=== PATIENT | female | born 1950 | race Caucasian/White ===

== ENCOUNTER → 2016-11-30 | Outpatient (CLI) | payer BC ==
[2016-11-30 08:25] LABS: ALANINE AMINOTRANSFERASE 41 U/L (9-52); ALBUMIN 3.6 g/dL (3.5-5.0); ALKALINE PHOSPHATASE 76 U/L (38-126); ANION GAP 10 (5-19); ASPARTATE AMINO TRANSFERASE 27 U/L (14-36); BILIRUBIN,DIRECT 0.2 mg/dL (0.0-0.4); BILIRUBIN,TOTAL 0.5 mg/dL (0.2-1.3); BLOOD UREA NITROGEN 14 mg/dL (7-20); CALCIUM 9.3 mg/dL (8.4-10.2); CARBON DIOXIDE 29 mmol/L (22-30); CHLORIDE 105 mmol/L (98-107); CHOLESTEROL 188.23 mg/dL (0-200); CREATININE RESULT 0.71 mg/dL (0.52-1.25); Direct HDL 69 mg/dL (>40); GLUCOSE 92 mg/dL (75-110); POTASSIUM 4.2 mmol/L (3.6-5.0); SODIUM 143.8 mmol/L (137-145); TOTAL PROTEIN 6.6 g/dL (6.3-8.2); TRIGLYCERIDES 116 mg/dL (<150)
[2016-11-30 08:36] LABS: DIRECT LDL 92 mg/dL (<100)
[2016-11-30 08:54] LABS: THYROID STIMULATING HORMONE 1.76 uIU/mL (0.47-4.68)
== END ==
LOC: LAB 07:33
PROVIDERS: ATTEND Internal Medicine
DX: E78.2 Mixed hyperlipidemia (principal); E03.8 Other specified hypothyroidism; I10 Essential (primary) hypertension
CPT/HCPCS: 36415; 80053; 80061; 84439; 84443

== ENCOUNTER 2018-05-08 14:25 | Observation (INO) | payer MEDICARE, OTHER ==
[2018-05-08] MEDS ORDERED: ASPIRIN 81 MG TABLET, CHEWABLE PO ONE (15:00)
--- NOTE | 2018-05-08 15:03 | ER Document Report ---
ED Medical Screen (RME) - General Chief Complaint: Chest Pain Stated Complaint: CHEST PAIN Time Seen by Provider: 05/08/18 14:54 TRAVEL OUTSIDE OF THE [place] IN LAST 30 DAYS: No - HPI Patient complains to provider of: Chest pain Onset: Other - This is a 67-year-old female with history of hypertension and hyperlipidemia that presents for evaluation of chest tightness as well as diaphoresis and nausea which developed while she was vacuuming at her denominational, upon stopping the pain resolved over approximately 3-4 minutes. She took 2 baby aspirins at that time and then presented for further evaluation. Currently she has no chest pain, she denies any recent illnesses, fevers, chills , shortness of breath, lightheadedness, abdominal pain constipation or dysuria. She is never had anything like this in the past. Does not believe she is ever had a stress test or catheterization in the past. - Related Data Allergies/Adverse Reactions: iodine Allergy (Verified 05/08/18 14:29) isometheptene Allergy (Verified 05/08/18 14:29) nitrofurantoin Allergy (Verified 05/08/18 14:29) phenazopyridine Allergy (Verified 05/08/18 14:29) propoxyphene Allergy (Verified 05/08/18 14:29) Quinolones Allergy (Verified 05/08/18 14:29) Sulfa (Sulfonamide Antibiotics) Allergy (Verified 05/08/18 14:29) trimethoprim Allergy (Verified 05/08/18 14:29) Past Medical History - General Information source: Patient - Social History Chew tobacco use (# tins/day): No Frequency of alcohol use: None Drug Abuse: None Renal/ Medical History: Denies: Hx Peritoneal Dialysis Physical Exam - Vital signs Vitals: Temp Pulse Resp BP Pulse Ox 97.6 F 58 L 16 186/94 H 97 05/08/18 14:37 05/08/18 14:37 05/08/18 14:37 05/08/18 14:37 05/08/18 14:37 Course - Re-evaluation Re-evalutation: 05/08/18 15:02 This 67-year-old female who had exertional chest pain with diaphoresis and nausea. We will initiate workup for cardiac etiology. We will defer further workup and disposition determination with second provider. I performed a rapid medical screening examination on this patient will defer further disposition determination workup and labs to next provider. - Vital Signs Vital signs: Temp Pulse Resp BP Pulse Ox 97.6 F 58 L 16 186/94 H 97 05/08/18 14:37 05/08/18 14:37 05/08/18 14:37 05/08/18 14:37 05/08/18 14:37 Doctor's Discharge - Discharge Referrals: INDY LEYVA MD [Primary Care Provider] - Follow up as needed
[2018-05-08 15:44] LABS: ABSOLUTE BASOPHILS # (AUTO) 0.1 10^3/uL (0.0-0.2); ABSOLUTE LYMPHOCYTES (AUTO) 0.9 10^3/uL (0.5-4.7); ABSOLUTE MONOCYTES (AUTO) 0.7 10^3/uL (0.1-1.4); ABSOLUTE NEUT (AUTO) 9.5 10^3/uL (1.7-8.2); BASOPHILS % (AUTO) 0.5 % (0-2); EOSINOPHILS % (AUTO) 0.2 % (0-6); HEMATOCRIT 43.5 % (36.0-47.0); HEMOGLOBIN 14.7 g/dL (12.0-15.5); LYMPHOCYTES % (AUTO) 8.2 % (13-45); MEAN CORPUSCULAR HEMOGLOBIN 32.7 pg (27.0-33.4); MEAN CORPUSCULAR HGB CONC 33.9 g/dL (32.0-36.0); MEAN CORPUSCULAR VOLUME 96 fl (80-97); MONOCYTES % (AUTO) 5.9 % (3-13); PLATELET COUNT 381 10^3/uL (150-450); RED BLOOD COUNT 4.51 10^6/uL (3.72-5.28); RED CELL DISTRIBUTION WIDTH 13.1 % (11.5-14.0); SEGMENTED NEUTROPHILS % (AUTO) 85.2 % (42-78); TOTAL CELLS COUNTED % (AUTO) 100 %; WHITE BLOOD COUNT 11.2 10^3/uL (4.0-10.5)
--- NOTE | 2018-05-08 15:47 | RADIOLOGY REPORT (SQ) ---
EXAM DESCRIPTION: CHEST SINGLE VIEW COMPLETED DATE/TIME: 05/08/2018 3:39 pm REASON FOR STUDY: chest pain COMPARISON: None. EXAM PARAMETERS: NUMBER OF VIEWS: One view. TECHNIQUE: Single frontal radiographic view of the chest acquired. RADIATION DOSE: NA LIMITATIONS: None. FINDINGS: LUNGS AND PLEURA: No opacities, masses or pneumothorax. No pleural effusion. MEDIASTINUM AND HILAR STRUCTURES: No masses. Contour normal. HEART AND VASCULAR STRUCTURES: Heart normal in size. Normal vasculature. BONES: No acute findings. HARDWARE: None in the chest. OTHER: No other significant finding. IMPRESSION: NO ACUTE RADIOGRAPHIC FINDING IN THE CHEST. TECHNICAL DOCUMENTATION: JOB ID: [id number] [employer]- All Rights Reserved Reading location - IP/workstation name: [email or web address]
--- NOTE | 2018-05-08 15:48 | ER Document Report ---
ED Cardiac - General Chief Complaint: Chest Pain Stated Complaint: CHEST PAIN Time Seen by Provider: 05/08/18 14:54 Notes: 67-year-old female patient emergency department chief complaint of chest pain and left-sided neck pain left arm pain radiating to the face. Patient states that she was vacuuming. Broke out in a sweat. Began to feel short of breath. Began having pain in the central portion of her chest radiating up into her left neck. Resolved. Went back to her vacuuming. Still having some achiness in the central portion of her chest subsided come here. While being evaluated by this physician during the physical exam she developed chest pain. Stat EKG was obtained. EKG was unchanged from prior EKG and no significant pathology seen. Nitro was ordered. Patient did receive aspirin. She also states that the left side of her face feels funny may be a little numb and tingly. Denies any eye pain. Denies any significant tearing of the left eye. TRAVEL OUTSIDE OF THE [place] IN LAST 30 DAYS: No - HPI Patient complains to provider of: Chest pain - Related Data Allergies/Adverse Reactions: iodine Allergy (Verified 05/08/18 15:01) isometheptene Allergy (Verified 05/08/18 15:01) nitrofurantoin Allergy (Verified 05/08/18 15:01) phenazopyridine Allergy (Verified 05/08/18 15:01) propoxyphene Allergy (Verified 05/08/18 15:01) Quinolones Allergy (Verified 05/08/18 15:01) Sulfa (Sulfonamide Antibiotics) Allergy (Verified 05/08/18 15:01) trimethoprim Allergy (Verified 05/08/18 15:01) Past Medical History - General Information source: Patient - Social History Smoking Status: Never Smoker Chew tobacco use (# tins/day): No Frequency of alcohol use: None Drug Abuse: None Lives with: Spouse/Significant other Family History: Other - Grandfather with a heart attack. Mother and father with no significant heart disease. No brother or sister with significant heart disease. Patient has suicidal ideation: No Patient has homicidal ideation: No - Past Medical History Cardiac Medical History: Reports: Hx Hypercholesterolemia, Hx Hypertension Pulmonary Medical History: Reports: Hx Asthma Neurological Medical History: Reports: Hx Migraine Renal/ Medical History: Denies: Hx Peritoneal Dialysis GI Medical History: Reports: Hx Gastroesophageal Reflux Disease Musculoskeletal Medical History: Reports Hx Arthritis Past Surgical History: Reports: Hx Cholecystectomy, Hx Hysterectomy, Hx Orthopedic Surgery, Hx Tonsillectomy Review of Systems - Review of Systems Notes: Constitutional: denies: Chills, Diaphoresis, Fever, Malaise, Weakness EENT: denies: Eye discharge, Blurred vision, Tearing, Double vision, Nose congestion, Nose discharge, Throat swelling, Mouth pain Cardiovascular: denies: Palpitations, Heart racing, Orthopnea,. Patient now complaining of chest pain and shortness of breath Respiratory: denies: Cough, Hurts to breathe, Wheezing, Shortness of breath Gastrointestinal: denies: Abdominal pain, Diarrhea, Nausea, Vomiting, Black stools, bright red blood in stool Genitourinary: denies: Burning, Dysuria, Discharge, Frequency, Flank pain, Hematuria Musculoskeletal: denies: Joint pain, Joint swelling, Muscle pain, Muscle stiffness, back pain Hematologic/Lymphatic: denies: Anemia, Easy bleeding, Easy bruising, Blood clots Neurological/Psychological: denies: Confusion, Dementia, Depression, Loss of consciousness Skin: No lesions, no masses, no skin breakdown, no abscesses Physical Exam - Vital signs Vitals: Temp Pulse Resp BP Pulse Ox 97.6 F 58 L 16 186/94 H 97 05/08/18 14:37 05/08/18 14:37 05/08/18 14:37 05/08/18 14:37 05/08/18 14:37 Interpretation: Normal - General General appearance: Appears well, Alert - HEENT Head: Normocephalic, Atraumatic Eyes: Normal Pupils: PERRL - Respiratory Respiratory status: No respiratory distress Chest status: Nontender Breath sounds: Normal Chest palpation: Normal - Cardiovascular Rhythm: Regular Heart sounds: Normal auscultation Murmur: No - Abdominal Inspection: Normal Distension: No distension Bowel sounds: Normal Tenderness: Nontender Organomegaly: No organomegaly - Back Back: Normal, Nontender - Extremities General upper extremity: Normal inspection, Nontender, Normal color, Normal ROM , Normal temperature General lower extremity: Normal inspection, Nontender, Normal color, Normal ROM , Normal temperature, Normal weight bearing. No: Eddie's sign - Neurological Neuro grossly intact: Yes Cognition: Normal Orientation: AAOx4 Check Coma Scale Eye Opening: Spontaneous Check Coma Scale Verbal: Oriented Pablo Coma Scale Motor: Obeys Commands Pablo Coma Scale Total: 15 Speech: Normal Motor strength normal: LUE, RUE, LLE, RLE Additional motor exam normals: Equal stemmer machine. No: Involuntary movements, Pronator drift, Weakness, Hemiplegia Sensory: Normal - Psychological Associated symptoms: Normal affect, Normal mood - Skin Skin Temperature: Warm Skin Moisture: Dry Skin Color: Normal Course - Re-evaluation Re-evalutation: 05/08/18 16:00 EKG was evaluated. Chest x-ray reviewed. No acute pathology seen. Repeat EKG performed during episode while patient was having chest pain which did not show any T wave inversions ST depression or ST elevation. Labs pending. Nitro ordered. Anticipate admit. 05/08/18 18:14 Initial labs negative. Will consult with medicine for admission as she will definitely need to both sets of cardiac labs and possibly a stress test. 05/08/18 18:15 Laboratory 05/08/18 05/08/18 05/08/18 15:18 15:18 15:18 WBC 11.2 H RBC 4.51 Hgb 14.7 Hct 43.5 MCV 96 MCH 32.7 MCHC 33.9 RDW 13.1 Plt Count 381 Seg Neutrophils % 85.2 H Lymphocytes % 8.2 L Monocytes % 5.9 Eosinophils % 0.2 Basophils % 0.5 Absolute Neutrophils 9.5 H Absolute Lymphocytes 0.9 Absolute Monocytes 0.7 Absolute Eosinophils 0.0 Absolute Basophils 0.1 Sodium 137.4 Potassium 4.0 Chloride 99 Carbon Dioxide 28 Anion Gap 10 BUN 15 Creatinine 0.78 Est GFR ( Amer) > 60 Est GFR (Non-Af Amer) > 60 Glucose 101 Calcium 9.2 Total Bilirubin 0.5 Direct Bilirubin 0.2 Neonat Total Bilirubin Not Reportable Neonat Direct Bilirubin Not Reportable Neonat Indirect Bili Not Reportable AST 25 ALT 27 Alkaline Phosphatase 88 Creatine Kinase 52 CK-MB (CK-2) 2.10 Troponin I < 0.012 Total Protein 7.8 Albumin 4.3 Chest X-Ray 05/08/18 15:00 IMPRESSION: NO ACUTE RADIOGRAPHIC FINDING IN THE CHEST. Head CT 05/08/18 16:00 IMPRESSION: NORMAL BRAIN CT WITHOUT CONTRAST. EVIDENCE OF ACUTE STROKE: NO. - Vital Signs Vital signs: Temp Pulse Resp BP Pulse Ox 97.6 F 58 L 14 166/87 H 99 05/08/18 14:37 05/08/18 14:37 05/08/18 16:35 05/08/18 16:35 05/08/18 16:35 - Laboratory Result Diagrams: 05/08/18 15:18 05/08/18 15:18 Laboratory results interpreted by me: 05/08/18 15:18 WBC 11.2 H Seg Neutrophils % 85.2 H Lymphocytes % 8.2 L Absolute Neutrophils 9.5 H - EKG Interpretation by Mt EKG shows normal: Sinus rhythm, [place], Intervals, QRS Complexes, ST-T Waves Additional EKG results interpreted by me: 05/08/18 18:14 Repeat EKG during chest pain unchanged and unremarkable. Discharge - Discharge Clinical Impression: Chest pain Qualifiers: Chest pain type: unspecified Qualified Code(s): R07.9 - Chest pain, unspecified Condition: Good Disposition: ADMITTED INPATIENT Admitting Provider: Hospitalist - Dr. Holm Unit Admitted: Telemetry
[2018-05-08] MEDS ORDERED: NITROGLYCERIN 0.4 MG/TAB 25 TAB/BOTTLE ONE (15:53)
[2018-05-08] MEDS: NITROGLYCERIN 0.4 MG/TAB 25 TAB/BOTTLE SL PRN ×2 (16:03→16:11)
[2018-05-08 16:08] LABS: ALANINE AMINOTRANSFERASE 27 U/L (9-52); ALBUMIN 4.3 g/dL (3.5-5.0); ALKALINE PHOSPHATASE 88 U/L (38-126); ANION GAP 10 (5-19); ASPARTATE AMINO TRANSFERASE 25 U/L (14-36); BILIRUBIN,DIRECT 0.2 mg/dL (0.0-0.4); BILIRUBIN,TOTAL 0.5 mg/dL (0.2-1.3); BLOOD UREA NITROGEN 15 mg/dL (7-20); CALCIUM 9.2 mg/dL (8.4-10.2); CARBON DIOXIDE 28 mmol/L (22-30); CHLORIDE 99 mmol/L (98-107); CREATINE KINASE 52 U/L (30-135); GLUCOSE 101 mg/dL (75-110); SODIUM 137.4 mmol/L (137-145); TOTAL PROTEIN 7.8 g/dL (6.3-8.2)
[2018-05-08 16:16] LABS: TROPONIN I < 0.012 ng/mL
--- NOTE | 2018-05-08 17:32 | RADIOLOGY REPORT (SQ) ---
EXAM DESCRIPTION: CT HEAD WITHOUT COMPLETED DATE/TIME: 05/08/2018 5:19 pm REASON FOR STUDY: left facial weaknesds and numbness with chest pain COMPARISON: None. TECHNIQUE: Axial images acquired through the brain without intravenous contrast. Images reviewed wi th bone, brain and subdural windows. Images stored on PACS. All CT scanners at this facility use dose modulation, iterative reconstruction, and/or weight based d osing when appropriate to reduce radiation dose to as low as reasonably achievable (ALARA). [facility]: Dose Right [facility]: CareDose [facility]: Dose Right [facility]: Teradose 4D [facility]: Smart [employer] RADIATION DOSE: CT Rad equipment meets quality standard of care and radiation dose reduction techniq ues were employed. CTDIvol: 53.2 mGy. DLP: 1097 mGy-cm. mGy. LIMITATIONS: None. FINDINGS: VENTRICLES: Normal size and contour. CEREBRUM: No masses. No hemorrhage. No midline shift. No evidence for acute infarction. Normal gra y/white matter differentiation. No areas of low density in the white matter. CEREBELLUM: No masses. No hemorrhage. No alteration of density. No evidence for acute infarction. EXTRAAXIAL SPACES: No fluid collections. No masses. ORBITS AND GLOBE: No intra- or extraconal masses. Normal contour of globe without masses. CALVARIUM: No fracture. PARANASAL SINUSES: No fluid or mucosal thickening. SOFT TISSUES: No mass or hematoma. OTHER: No other significant finding. IMPRESSION: NORMAL BRAIN CT WITHOUT CONTRAST. EVIDENCE OF ACUTE STROKE: NO. COMMENT: Quality ID # [id number]: Final reports with documentation of one or more dose reduction techniques (e.g., Automated exposure control, adjustment of the mA and/or kV according to patient size, use of iterative reconstruction technique) TECHNICAL DOCUMENTATION: JOB ID: [id number]- All Rights Reserved Reading location - IP/workstation name: [email or web address]
[2018-05-08] MEDS ORDERED: MAGNESIUM HYDROXIDE SUSP 30 ML UDCUP PO PRN (17:55)
[2018-05-08] MEDS ORDERED: OXYCODONE-ACETAMINOPHEN 5-325 MG TABLET PO PRN (17:55)
[2018-05-08] MEDS ORDERED: ONDANSETRON HCL INJ/PF 4 MG/2 ML SDV IV PRN (17:55)
[2018-05-08] MEDS ORDERED: IPRATROPIUM/ALBUTEROL 0.5-2.5 MG/3 ML AMPUL NEB PRN (17:55)
[2018-05-08] MEDS ORDERED: ACETAMINOPHEN 325 MG TABLET PO PRN (17:55)
[2018-05-08] MEDS ORDERED: TEMAZEPAM 7.5 MG CAPSULE PO PRN (17:55)
[2018-05-08] MEDS ORDERED: NITROGLYCERIN 0.4 MG/TAB 25 TAB/BOTTLE SL PRN (18:00)
[2018-05-08] MEDS: NITROGLYCERIN 2% OINTMENT 1 GM PACKET TP SCH ×2 (18:18→23:31)
--- NOTE | 2018-05-08 18:18 | EKG REPORT ---
SEVERITY:- OTHERWISE NORMAL ECG - SINUS RHYTHM BORDERLINE LEFT AXIS DEVIATION : Confirmed by: Madisyn Merida MD 08-May-2018 18:17:30
--- NOTE | 2018-05-08 18:18 | EKG REPORT ---
SEVERITY:- ABNORMAL ECG - SINUS RHYTHM NONSPECIFIC INTRAVENTRICULAR CONDUCTION DELAY : Confirmed by: Madisyn Merida MD 08-May-2018 18:17:18
--- NOTE | 2018-05-08 18:27 | PDOC H&P ---
History of Present Illness Admission Date/PCP: 05/08/2018 Patient complains of: Chest pain x few hours History of Present Illness: GUILLE VILLAFANA is a 67 year old female patient presents emergency room complains of chest pain of sudden onset. 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 She felt weak and dizzy and said she had to take about 30 minutes just to see down and catch her breath. She felt woozy and actually thought her blood sugar was low although she is not diabetic. She felt a little better after sitting down for about 30 minutes and she was able to finish work however went on home and just did not feel right. She eventually came to the emergency room when she had 2 episodes of chest pain again the second episode was relieved with nitroglycerin. She really has not had any further episodes of chest pain over the still not feeling quite right. She was found to have a elevated systolic blood pressure as high as 200. She states she is compliant with her medications. She said she just saw her PCP last week and her blood pressure was okay. There is no associated nausea vomiting although she did have diaphoresis with the chest pressure. She denies any history of smoking or any history of aneurysm in her family. She denies any prior episode of chest pain and denies any cardiac history. She states she had a stress test about 40 years ago. Past Medical History Cardiac Medical History: Reports: Hyperlipidema, Hypertension Pulmonary Medical History: Reports: Asthma Neurological Medical History: Reports: Migraine GI Medical History: Reports: Gastroesophageal Reflux Disease Musculoskeltal Medical History: Reports: Arthritis Past Surgical History Past Surgical History: Reports: Cholecystectomy, Hysterectomy, Orthopedic Surgery, Tonsillectomy Social History Information Source: Patient Lives with: Spouse/Significant other Smoking Status: Never Smoker Hx Recreational Drug Use: No - Advance Directive Resuscitation Status: Full Code Family History Family History: None, Other - Grandfather with a heart attack. Mother and father with no significant heart disease. No brother or sister with significant heart disease. Parental Family History Reviewed: No Children Family History Reviewed: Yes Sibling(s) Family History Reviewed.: No Medication/Allergy Allergies/Adverse Reactions: iodine Allergy (Verified 05/08/18 15:01) isometheptene Allergy (Verified 05/08/18 15:01) nitrofurantoin Allergy (Verified 05/08/18 15:01) phenazopyridine Allergy (Verified 05/08/18 15:01) propoxyphene Allergy (Verified 05/08/18 15:01) Quinolones Allergy (Verified 05/08/18 15:01) Sulfa (Sulfonamide Antibiotics) Allergy (Verified 05/08/18 15:01) trimethoprim Allergy (Verified 05/08/18 15:01) Review of Systems All systems: reviewed and no additional remarkable complaints except as stated Constitutional: ABSENT: chills, fever(s), headache(s), weight gain, weight loss Eyes: ABSENT: visual disturbances Ears: ABSENT: hearing changes Cardiovascular: PRESENT: chest pain. ABSENT: dyspnea on exertion, edema, orthropnea, palpitations Respiratory: ABSENT: cough, hemoptysis Gastrointestinal: ABSENT: abdominal pain, constipation, diarrhea, hematemesis, hematochezia, nausea, vomiting Genitourinary: ABSENT: dysuria, hematuria Musculoskeletal: ABSENT: joint swelling Integumentary: ABSENT: rash, wounds Neurological: ABSENT: abnormal gait, abnormal speech, confusion, dizziness, focal weakness, syncope Psychiatric: ABSENT: anxiety, depression, homidical ideation, suicidal ideation Endocrine: ABSENT: cold intolerance, heat intolerance, polydipsia, polyuria Hematologic/Lymphatic: ABSENT: easy bleeding, easy bruising Physical Exam Vital Signs: Temp Pulse Resp BP Pulse Ox 97.6 F 58 L 14 166/87 H 99 05/08/18 14:37 05/08/18 14:37 05/08/18 16:35 05/08/18 16:35 05/08/18 16:35 Intake & Output 05/07/18 05/08/18 05/09/18 06:59 06:59 06:59 Weight 84 kg General appearance: PRESENT: no acute distress, well-developed, well-nourished Head exam: PRESENT: atraumatic, normocephalic Eye exam: PRESENT: conjunctiva pink, EOMI, PERRLA. ABSENT: scleral icterus Ear exam: PRESENT: normal external ear exam Mouth exam: PRESENT: moist, tongue midline Neck exam: ABSENT: carotid bruit, JVD, lymphadenopathy, thyromegaly Respiratory exam: PRESENT: clear to auscultation sabiha. ABSENT: rales, rhonchi, wheezes Cardiovascular exam: PRESENT: RRR. ABSENT: diastolic murmur, rubs, systolic murmur Pulses: PRESENT: normal dorsalis pedis pul Vascular exam: PRESENT: normal capillary refill GI/Abdominal exam: PRESENT: normal bowel sounds, soft. ABSENT: distended, guarding, mass, organolmegaly, rebound, tenderness Rectal exam: PRESENT: deferred Extremities exam: PRESENT: full ROM. ABSENT: calf tenderness, clubbing, pedal edema Neurological exam: PRESENT: alert, awake, oriented to person, oriented to place , oriented to time, oriented to situation, CN II-XII grossly intact. ABSENT: motor sensory deficit Psychiatric exam: PRESENT: appropriate affect, normal mood. ABSENT: homicidal ideation, suicidal ideation Skin exam: PRESENT: dry, intact, warm. ABSENT: cyanosis, rash Results Laboratory Results: 05/08/18 15:18 05/08/18 15:18 05/08/18 05/08/18 15:18 15:18 WBC 11.2 H RBC 4.51 Hgb 14.7 Hct 43.5 MCV 96 MCH 32.7 MCHC 33.9 RDW 13.1 Plt Count 381 Seg Neutrophils % 85.2 H Lymphocytes % 8.2 L Monocytes % 5.9 Eosinophils % 0.2 Basophils % 0.5 Absolute Neutrophils 9.5 H Absolute Lymphocytes 0.9 Absolute Monocytes 0.7 Absolute Eosinophils 0.0 Absolute Basophils 0.1 Sodium 137.4 Potassium 4.0 Chloride 99 Carbon Dioxide 28 Anion Gap 10 BUN 15 Creatinine 0.78 Est GFR ( Amer) > 60 Est GFR (Non-Af Amer) > 60 Glucose 101 Calcium 9.2 Total Bilirubin 0.5 AST 25 ALT 27 Alkaline Phosphatase 88 Total Protein 7.8 Albumin 4.3 05/08/18 05/08/18 15:18 15:18 Creatine Kinase 52 CK-MB (CK-2) 2.10 Troponin I < 0.012 EKG Comments: Sinus rhythm, no acute ST changes Impressions: Chest X-Ray 05/08/18 15:00 IMPRESSION: NO ACUTE RADIOGRAPHIC FINDING IN THE CHEST. Head CT 05/08/18 16:00 IMPRESSION: NORMAL BRAIN CT WITHOUT CONTRAST. EVIDENCE OF ACUTE STROKE: NO. Assessment & Plan - Diagnosis (1) Atypical chest pain Is this a current diagnosis for this admission?: Yes Plan: MRI to be obtained to rule out dissection. She is allergic to contrast and iodine The above was negative stress test will be planned for tomorrow morning and if needed consultation with cardiology. Serial cardiac enzymes will be obtained patient will be placed on beta-blockers as well as aspirin and statin (2) Hypertensive urgency Is this a current diagnosis for this admission?: Yes Plan: We will start on beta-sunday and place on as needed hydralazine - Time Time Spent: 50 to 70 Minutes Medications reviewed and adjusted accordingly: Yes Anticipated discharge: Home Within: within 24 hours - Inpatient Certification Based on my medical assessment, after consideration of the patient's comorbidities, presenting symptoms, or acuity I expect that the services needed warrant INPATIENT care.: Yes Medical Necessity: Need For Continuous Telemetry Monitoring, Risk of Complication if Not Cared For in Hospital
[2018-05-08] MEDS ORDERED: TRAZODONE HCL 50 MG TABLET PO ONE (21:00)
[2018-05-08] MEDS: METOPROLOL TARTRATE 25 MG TABLET PO SCH (22:29)
[2018-05-08] MEDS: ENOXAPARIN SODIUM INJ 40 MG/0.4 ML DISP.SYRIN SUBCUT SCH (22:29)
--- NOTE | 2018-05-08 23:09 | RADIOLOGY REPORT (SQ) ---
EXAM DESCRIPTION: MR CHEST WITHOUT IV CONTRAST COMPLETED DATE/TME: 05/08/2018 16:44 CLINICAL HISTORY: 67 years Female, eval aortic arch for dissection COMPARISON: None. TECHNIQUE/LIMITATION: Targeted noncontrast MRI. Targeted coronal [place]iest[place] nongated, axial fast and nongated, axial T1 black blood, axial T2 fat saturation black blood, sagittal T1 black blood, sagittal T2 fat saturation black blood, sagittal oblique siesta cine FINDINGS: No MR discernment of aortic dissection or aneurysm. Consider CTA evaluation for increased sensitivity-specificity, as clinically warranted/able. MR evaluation is better suited for follow-up. No comparison exam is available. IMPRESSION: Targeted exam with requested parameters, as described. Limitation.
[2018-05-09] MEDS: NITROGLYCERIN 2% OINTMENT 1 GM PACKET TP SCH ×3 (05:18→17:26)
[2018-05-09 05:32] LABS: CHOLESTEROL 200.85 mg/dL (0-200); TRIGLYCERIDES 171 mg/dL (<150)
[2018-05-09 05:43] LABS: DIRECT LDL 101 mg/dL (<100)
[2018-05-09 05:49] LABS: VLDL CHOLESTEROL 34.2 mg/dL (10-31)
[2018-05-09] MEDS ORDERED: ASPIRIN 81 MG TABLET, ENT COATED PO SCH (10:00)
[2018-05-09] MEDS ORDERED: DOCUSATE SODIUM 100 MG CAPSULE PO SCH (10:00)
[2018-05-09] MEDS: ENOXAPARIN SODIUM INJ 40 MG/0.4 ML DISP.SYRIN SUBCUT SCH (12:12)
[2018-05-09] MEDS: METOPROLOL TARTRATE 25 MG TABLET PO SCH ×2 (12:13→21:14)
[2018-05-09] MEDS ORDERED: REGADENOSON INJ 0.4 MG/5 ML DISP.SYRIN IV ONE (12:38)
--- NOTE | 2018-05-09 15:08 | DRAGON STRESS TEST REPORT ---
INTRAVENOUS LEXISCAN CARDIOLITE STRESS TEST USING SINGLE PHOTON EMMISION COMPUTERIZED TOMOGRAPHIC. DATE OF PROCEDURE: May 09, 2018, INDICATION : Chest pain CARDIAC RISK FACTORS: Hypertension, dyslipidemia RESTING EKG: Sinus rhythm, no significant baseline ST-T wave changes noted STRESS EKG: No significant ST segment changes noted with LexiScan bolus REASON FOR TERMINATION: Protocol. PROCEDURE REPORT: Baseline heart rate 59 beats per minute with blood pressure of 133/71. Patient had no significant complaints. Patient was bolused with Lexiscan 0.4 mg intravenously followed by saline bolus. Heart rate at 2 minutes post bolus 90 with a blood pressure of 148/82. 3 minutes post bolus heart rate 98 with blood pressure of 141/69. No significant EKG changes were noted. Patient had no significant complaints during the procedure or postprocedure. CONCLUSIONS: Normal EKG and hemodynamic response to IV LexiScan. NUCLEAR DATA: At rest the patient was given 12.65 millicuries of technetium 99 sestamibi injected intravenously. As per protocol rest gated SPECT images were obtained. On day of stress test, the patient was given intravenous LexiScan at a dose of 0.4 mg in 5 mL intravenously, followed by flush with normal saline. Subsequently the stress dose of 37.0 millicuries of technetium 99 sestamibi was injected intravenously. As per protocol stress gated images were obtained. NUCLEAR INTERPRETATION: Both raw and processed data were used for interpretation. Visual, qualitative, computer-generated quantitative data was used. There was good myocardial uptake of technetium compound. Motion artifact and soft tissue attenuations were noted. Increased visceral uptake was noted. No definitive areas of transient perfusion defect noted, No definitive areas of fixed perfusion defect or scars noted. EKG gated imaging showed LV EF at 60 %, rest and stress gated EF similar visually. T. I D. ratio was 1.00. Lung heart ratio noted to be within normal limits 0.33. No significant extracardiac and abnormal radiotracer activities were noted. RV free wall uptake was noted to be WNL. IMPRESSION: Also refer to comments under nuclear interpretation. Also test results needs to be interpreted in the context of pretest probability. 1. No definitive areas of transient perfusion defect noted. 2. There is no definitive scintigraphic evidence of myocardial infarction/scar. 3. EKG gated imaging shows left ventricular ejection fraction of approx. 60 %. 4. Clinical correlation requested as worse disease and or balanced ischemia could be missed. In approximately 10% of the cases Lexiscan may not cause adequate vasodilatory stress. RECOMMENDATIONS: Aggressive risk factor modification and medical management. Further evaluation may be needed if continued symptoms or other high risk indicators are noted on clinical evaluation. Close cardiology follow-up is also recommended. Clinical correlation with echocardiogram derived ejection fraction. Inability to exercise by itself can lead to increased cardiovascular event risks. Consider cardiology consultation and or follow-up if clinically indicated. I am available for cardiology evaluation and consultation if requested by the ribbon blockmaker, unless patient already has a manager line. Dr. Ronny Sorenson. MRCP Board certified in cardiology and sleep medicine. Board certified in nuclear cardiology, adult echocardiography. TEMO
--- NOTE | 2018-05-09 15:55 | PDOC PROGRESS REPORT ---
Subjective Progress Note for:: 05/09/18 Subjective:: Patient complained of headaches at the time of my exam. She denies any chest pain. Headache likely secondary to Persantine or adenosine received during cardiac stress test. Stress test is apparently negative but cardiology suggest obtaining echocardiogram due to her bundle branch block. Reason For Visit: HYPERTENSIVE EMERGENCY,ATYPICAL CHEST PAIN Physical Exam Vital Signs: Temp Pulse Resp BP Pulse Ox 97.7 F 69 17 138/73 H 98 05/09/18 12:09 05/09/18 14:00 05/09/18 12:09 05/09/18 12:09 05/09/18 12:09 Intake & Output 05/08/18 05/09/18 05/10/18 06:59 06:59 06:59 Intake Total 600 0 Balance 600 0 Weight 82.5 kg General appearance: PRESENT: no acute distress, well-developed, well-nourished Head exam: PRESENT: atraumatic, normocephalic Eye exam: PRESENT: conjunctiva pink, EOMI, PERRLA. ABSENT: scleral icterus Ear exam: PRESENT: normal external ear exam Mouth exam: PRESENT: moist, tongue midline Neck exam: ABSENT: carotid bruit, JVD, lymphadenopathy, thyromegaly Respiratory exam: PRESENT: clear to auscultation sabiha. ABSENT: rales, rhonchi, wheezes Cardiovascular exam: PRESENT: RRR. ABSENT: diastolic murmur, rubs, systolic murmur Pulses: PRESENT: normal dorsalis pedis pul Vascular exam: PRESENT: normal capillary refill GI/Abdominal exam: PRESENT: normal bowel sounds, soft. ABSENT: distended, guarding, mass, organolmegaly, rebound, tenderness Rectal exam: PRESENT: deferred Extremities exam: PRESENT: full ROM. ABSENT: calf tenderness, clubbing, pedal edema Neurological exam: PRESENT: alert, awake, oriented to person, oriented to place , oriented to time, oriented to situation, CN II-XII grossly intact. ABSENT: motor sensory deficit Psychiatric exam: PRESENT: appropriate affect, normal mood. ABSENT: homicidal ideation, suicidal ideation Skin exam: PRESENT: dry, intact, warm. ABSENT: cyanosis, rash Results Laboratory Results: 05/09/18 04:41 Triglycerides 171 H Cholesterol 200.85 H LDL Cholesterol Direct 101 H VLDL Cholesterol 34.2 H HDL Cholesterol 68 05/08/18 05/09/18 18:00 04:41 Troponin I < 0.012 < 0.012 Impressions: Chest X-Ray 05/08/18 15:00 IMPRESSION: NO ACUTE RADIOGRAPHIC FINDING IN THE CHEST. Head CT 05/08/18 16:00 IMPRESSION: NORMAL BRAIN CT WITHOUT CONTRAST. EVIDENCE OF ACUTE STROKE: NO. Chest MRI 05/08/18 16:44 IMPRESSION: Targeted exam with requested parameters, as described. Limitation. Assessment & Plan - Diagnosis (1) Atypical chest pain Is this a current diagnosis for this admission?: Yes Plan: Resolved. F/u on echo, cardiology eval (2) Hypertensive urgency Is this a current diagnosis for this admission?: Yes Plan: BP much improved. Will continue to adjust meds as needed - Time Time Spent with patient: 15-24 minutes Medications reviewed and adjusted accordingly: Yes Anticipated discharge: Home Within: within 24 hours - Inpatient Certification Based on my medical assessment, after consideration of the patient's comorbidities, presenting symptoms, or acuity I expect that the services needed warrant INPATIENT care.: Yes Medical Necessity: Need For Continuous Telemetry Monitoring, Risk of Complication if Not Cared For in Hospital, Other - Cardiology evaluation
[2018-05-10] MEDS: NITROGLYCERIN 2% OINTMENT 1 GM PACKET TP SCH ×2 (00:46→06:39)
--- NOTE | 2018-05-10 09:33 | XCELERA REPORT ---
[address] [address] Transthoracic Echocardiogram Report Name: GUILLE VILLAFANA Age: 67 yrs Gender: Female : 1950 Patient Status: Inpatient Patient Location: [address] [place] [address] Study Date: 05/09/2018 01:37 PM Height: 66 in Weight: 181 lb BSA: 1.9 m2 Procedure: A complete two-dimensional transthoracic echocardiogram was performed (2D, M-mode, spectral and color flow Doppler). The study was technically adequate with some images being suboptimal in quality. Reason For Study: CP Ordering Physician: SILVER BO Performed By: Kacey Adams Interpretation Summary The left ventricular ejection fraction is normal. There is borderline concentric left ventricular hypertrophy. The left ventricle is grossly normal size. Doppler measurements suggest pseudonormalized left ventricular relaxation, which is associated with grade II/IV or mild to moderate diastolic dysfunction Wall motion cannot be accurately commented on, but no definite regional wall motion abnormalities noted. The right ventricle is grossly normal size. The right ventricular systolic function is normal. The right atrium is normal in size The left atrial size is normal. There is no mitral valve stenosis. There is a trace to mild amount of mitral regurgitation There is no aortic valve stenosis There is a trace amount of aortic regurgitation There is a trace or physiologic amount of tricuspid regurgitation Tricuspid regurgitation jet envelope not well defined to measure RV systolic pressure accurately. The aortic root is not well visualized but is probably normal size. The inferior vena cava appeared normal and decreased > 50% with respiration (RAP 5-10 mmHg) Minimal pericardial effusion. MMode/2D Measurements & Calculations RVDd: 2.9 cm LVIDd: 4.9 cm FS: 40.4 % Ao root diam: 2.8 cm IVSd: 0.94 cm LVIDs: 2.9 cm EDV(Teich): 111.4 ml Ao root area: 6.0 cm2 LVPWd: 0.86 cm ESV(Teich): 32.3 ml LA dimension: 4.0 cm EF(Teich): 71.0 % Doppler Measurements & Calculations MV E max kadi: MV P1/2t max kadi: Ao V2 max: LV V1 max P.8 cm/sec 87.1 cm/sec 141.9 cm/sec 5.6 mmHg MV A max kadi: MV P1/2t: 62.9 msec Ao max P.1 mmHg LV V1 max: 87.9 cm/sec MVA(P1/2t): 3.5 cm2 118.0 cm/sec MV E/A: 0.99 MV dec slope: 405.8 cm/sec2 MV dec time: 0.19 sec PA V2 max: TR max kadi: MV P1/2t-pr_phl: 69.4 cm/sec 201.7 cm/sec 62.9 msec PA max PG: TR max P.3 mmHg 1.9 mmHg Left Ventricle The left ventricle is grossly normal size. There is borderline concentric left ventricular hypertrophy. The left ventricular ejection fraction is normal. Doppler measurements suggest pseudonormalized left ventricular relaxation, which is associated with grade II/IV or mild to moderate diastolic dysfunction. Wall motion cannot be accurately commented on, but no definite regional wall motion abnormalities noted. Right Ventricle The right ventricle is grossly normal size. There is normal right ventricular wall thickness. The right ventricular systolic function is normal. Atria The right atrium is normal in size. The left atrial size is normal. Interarterial septum not well visualized and not well dopplered. Cannot comment on ASD/PFO presence. Mitral Valve The mitral valve is grossly normal. There is no mitral valve stenosis. There is a trace to mild amount of mitral regurgitation. Aortic Valve The aortic valve is grossly normal. There is no aortic valve stenosis. There is a trace amount of aortic regurgitation. Tricuspid Valve The tricuspid valve is not well visualized, but is grossly normal. There is no tricuspid stenosis. There is a trace or physiologic amount of tricuspid regurgitation. Tricuspid regurgitation jet envelope not well defined to measure RV systolic pressure accurately. Pulmonic Valve The pulmonic valve is not well visualized. Great Vessels The aortic root is not well visualized but is probably normal size. The inferior vena cava appeared normal and decreased > 50% with respiration (RAP 5-10 mmHg). Effusions Minimal pericardial effusion. : SILVER BO > Silver Bo
[2018-05-10 09:58] VITALS: BP 123/68
[2018-05-10] MEDS ORDERED: ASPIRIN 81 MG TABLET, ENT COATED PO SCH (10:00)
[2018-05-10] MEDS ORDERED: ONDANSETRON HCL INJ/PF 4 MG/2 ML SDV IV PRN (10:00)
--- NOTE | 2018-05-10 15:42 | PDOC DISCHARGE SUMMARY ---
General - Admit/Disc Date/PCP Admission Date/Primary Care Provider: 05/08/18 17:55 Discharge Date: 05/10/18 - Discharge Diagnosis (1) Atypical chest pain Is this a current diagnosis for this admission?: Yes Summary: Likely secondary to hypertensive emergency (2) Hypertensive urgency Is this a current diagnosis for this admission?: Yes Summary: Patient's antihypertensives were adjusted further evaluation and adjustment suggested as outpatient (3) Dyslipidemia Is this a current diagnosis for this admission?: Yes Summary: Patient started on statin and diet is to be controlled as suggested - Additional Information Resuscitation Status: Full Code Discharge Diet: Cardiac Discharge Activity: Activity As Tolerated Prescriptions: Metoprolol Tartrate [Lopressor 25 mg Tablet] 25 mg PO Q12 #60 tablet Home Medications: Cholecalciferol (Vitamin D3) [Vitamin D3 2000 unit Tablet] 2,000 unit PO DAILY 05/09/18 Esomeprazole Magnesium [Nexium] 20 mg PO DAILY 05/09/18 Fluticasone Propionate [Flonase Nasal [place] 50 Mcg/[place] 16 gm] 1 spray NASL DAILYP PRN 05/09/18 Levothyroxine Sodium [Synthroid] 125 mcg PO Q6AM 05/09/18 Lisinopril [Zestril] 10 mg PO DAILY 05/09/18 Meloxicam [Mobic] 7.5 mg PO DAILY 05/09/18 Prednisone [Sterapred Ds] 0 tab PO ASDIR PRN 05/09/18 Aspirin [Ecotrin 81 mg EC Tablet] 81 mg PO DAILY tabec 05/10/18 Metoprolol Tartrate [Lopressor 25 mg Tablet] 25 mg PO Q12 #60 tablet 05/10/18 History of Present Illness History of Present Illness: GUILLE VILLAFANA is a 67 year old female patient presents emergency room complains of chest pain of sudden onset. 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 She felt weak and dizzy and said she had to take about 30 minutes just to see down and catch her breath. She felt woozy and actually thought her blood sugar was low although she is not diabetic. She felt a little better after sitting down for about 30 minutes and she was able to finish work however went on home and just did not feel right. She eventually came to the emergency room when she had 2 episodes of chest pain again the second episode was relieved with nitroglycerin. She really has not had any further episodes of chest pain over the still not feeling quite right. She was found to have a elevated systolic blood pressure as high as 200. She states she is compliant with her medications. She said she just saw her PCP last week and her blood pressure was okay. There is no associated nausea vomiting although she did have diaphoresis with the chest pressure. She denies any history of smoking or any history of aneurysm in her family. She denies any prior episode of chest pain and denies any cardiac history. She states she had a stress test about 40 years ago. Hospital Course Hospital Course: Cardiolite stress test was done which reveals no definite area of transient perfusion defect echocardiogram revealed left and right ventricular sizes that is grossly normal. Patient's chest pain is completely resolved and her blood pressure has improved. She did have interventricular conduction delay on EKG. Her metoprolol has been decreased as she was somewhat bradycardic and this should be further evaluated and discontinued if indicated. Patient's cholesterol level was also elevated as well as her triglyceride level so she was started on statin Patient was also evaluated by pad making machine operator. Please see cardiology consultation for full details. Physical Exam Vital Signs: Temp Pulse Resp BP Pulse Ox 97.4 F 54 L 16 123/68 95 05/10/18 05:08 05/10/18 05:08 05/10/18 05:08 05/10/18 05:08 05/10/18 05:08 Intake & Output 05/09/18 05/10/18 05/11/18 06:59 06:59 06:59 Intake Total 600 911 Balance 600 911 Weight 82.5 kg 82.6 kg General appearance: PRESENT: no acute distress, well-developed, well-nourished Head exam: PRESENT: atraumatic, normocephalic Eye exam: PRESENT: conjunctiva pink, EOMI, PERRLA. ABSENT: scleral icterus Ear exam: PRESENT: normal external ear exam Mouth exam: PRESENT: moist, tongue midline Neck exam: ABSENT: carotid bruit, JVD, lymphadenopathy, thyromegaly Respiratory exam: PRESENT: clear to auscultation sabiha. ABSENT: rales, rhonchi, wheezes Cardiovascular exam: PRESENT: RRR. ABSENT: diastolic murmur, rubs, systolic murmur Pulses: PRESENT: normal dorsalis pedis pul Vascular exam: PRESENT: normal capillary refill GI/Abdominal exam: PRESENT: normal bowel sounds, soft. ABSENT: distended, guarding, mass, organolmegaly, rebound, tenderness Rectal exam: PRESENT: deferred Extremities exam: PRESENT: full ROM. ABSENT: calf tenderness, clubbing, pedal edema Neurological exam: PRESENT: alert, awake, oriented to person, oriented to place , oriented to time, oriented to situation, CN II-XII grossly intact. ABSENT: motor sensory deficit Psychiatric exam: PRESENT: appropriate affect, normal mood. ABSENT: homicidal ideation, suicidal ideation Skin exam: PRESENT: dry, intact, warm. ABSENT: cyanosis, rash Results Laboratory Results: 05/08/18 05/09/18 18:00 04:41 Troponin I < 0.012 < 0.012 Impressions: Chest X-Ray 05/08/18 15:00 IMPRESSION: NO ACUTE RADIOGRAPHIC FINDING IN THE CHEST. Head CT 05/08/18 16:00 IMPRESSION: NORMAL BRAIN CT WITHOUT CONTRAST. EVIDENCE OF ACUTE STROKE: NO. Chest MRI 05/08/18 16:44 IMPRESSION: Targeted exam with requested parameters, as described. Limitation. Qualifiers - * PATIENT BEING DISCHARGED WITH ANY OF THE FOLLOWING DIAGNOSIS: No Plan Discharge Plan: Follow-up with primary care physician as well as pad making machine operator as advised Time Spent: Less than 30 Minutes
--- NOTE | 2018-05-10 19:10 | PDOC CONSULTATION ---
Consultation Consult Date: 05/09/18 Attending physician:: ORLANDO DAS Consult reason:: Chest pain History of Present Illness Admission Date/PCP: 05/08/18 17:55 Patient complains of: Chest pain History of Present Illness: GUILLE VILLAFANA is a 67 year old female patient presents through the emergency room complains of chest pain of sudden onset. 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 She felt weak and dizzy and said she had to take about 30 minutes just to see down and catch her breath. She felt woozy and actually thought her blood sugar was low although she is not diabetic. She felt a little better after sitting down for about 30 minutes and she was able to finish work however went on home and just did not feel right. She eventually came to the emergency room when she had 2 episodes of chest pain again the second episode was relieved with nitroglycerin. She really has not had any further episodes of chest pain over the still not feeling quite right. She was found to have a elevated systolic blood pressure as high as 200. She states she is compliant with her medications. She said she just saw her PCP last week and her blood pressure was okay. There is no associated nausea vomiting although she did have diaphoresis with the chest pressure. She denies any history of smoking or any history of aneurysm in her family. She denies any prior episode of chest pain and denies any cardiac history. She states she had a stress test about 40 years ago. This history obtained by the hospitalist was reviewed and confirmed. Patient does not see a barrel loader and cleaner on a regular basis. She denied having any cardiac workup. She was noted to have severely elevated blood pressure. Past Medical History Cardiac Medical History: Reports: Hyperlipidema, Hypertension Pulmonary Medical History: Reports: Asthma Neurological Medical History: Reports: Migraine GI Medical History: Reports: Gastroesophageal Reflux Disease Musculoskeltal Medical History: Reports: Arthritis Past Surgical History Past Surgical History: Reports: Cholecystectomy, Hysterectomy, Orthopedic Surgery, Tonsillectomy Social History Information Source: Patient Lives with: Spouse/Significant other Smoking Status: Never Smoker Frequency of Alcohol Use: Rare Hx Recreational Drug Use: No Drugs: None Hx Prescription Drug Abuse: No - Advance Directive Resuscitation Status: Full Code Family History Family History: None, Other - Grandfather with a heart attack. Mother and father with no significant heart disease. No brother or sister with significant heart disease. Family History: Negative for premature coronary artery disease or sudden cardiac in the family amongst first degree relatives. Parental Family History Reviewed: Yes Children Family History Reviewed: Yes Sibling(s) Family History Reviewed.: Yes Medication/Allergy Home Medications: Cholecalciferol (Vitamin D3) [Vitamin D3 2000 unit Tablet] 2,000 unit PO DAILY 05/09/18 Esomeprazole Magnesium [Nexium] 20 mg PO DAILY 05/09/18 Fluticasone Propionate [Flonase Nasal [place] 50 Mcg/[place] 16 gm] 1 spray NASL DAILYP PRN 05/09/18 Levothyroxine Sodium [Synthroid] 125 mcg PO Q6AM 05/09/18 Lisinopril [Zestril] 10 mg PO DAILY 05/09/18 Meloxicam [Mobic] 7.5 mg PO DAILY 05/09/18 Prednisone [Sterapred Ds] 0 tab PO ASDIR PRN 05/09/18 Aspirin [Ecotrin 81 mg EC Tablet] 81 mg PO DAILY tabec 05/10/18 Metoprolol Tartrate [Lopressor 25 mg Tablet] 25 mg PO Q12 #60 tablet 05/10/18 Allergies/Adverse Reactions: iodine Allergy (Verified 05/08/18 15:01) isometheptene Allergy (Verified 05/08/18 15:01) nitrofurantoin Allergy (Verified 05/08/18 15:01) phenazopyridine Allergy (Verified 05/08/18 15:01) propoxyphene Allergy (Verified 05/08/18 15:01) Quinolones Allergy (Verified 05/08/18 15:01) Sulfa (Sulfonamide Antibiotics) Allergy (Verified 05/08/18 15:01) trimethoprim Allergy (Verified 05/08/18 15:01) Review of Systems Review of Systems: Please see history of present illness and past medical history as wall. Constitutional: No fever or chills reported. Head : No recent chronic headaches, recent head injury. Eyes: No recent eye pain, diplopia, redness, discharge, acute visual changes. Ears: No recent chronic ear pain, acute hearing loss, ear discharge. Oral cavity: No recent ulcerations, bleeding, oral cavity discomfort. Neck: No recent acute neck pain reported. Hematologic: No recent easy bruising or bleeding. Lymphatic: No recent lymph node enlargement reported. Cardiovascular system review: See history of present illness. Respiratory system review: No hemoptysis or blood clots in the lungs reported. Mild Shortness of breath on exertion Gastrointestinal system review: Negative for any recent acute hematemesis, melena. Genitourinary system review: No recent acute or chronic hematuria, flank pain, UTI etc. reported. Skin system review: Negative for any recent abnormal bruising, no rash, no pruritus reported. Neurologic: No prior history of strokes, mini strokes, seizure disorder. Psychologic: No history of major psychosis or major depression reported. Musculoskeletal: Minor aches and pains reported. No acute joint swelling reported. Endocrine: No recent polyuria, polydipsia, recent heat or cold intolerance. Physical Exam Vital Signs: Temp Pulse Resp BP Pulse Ox 97.5 F 58 L 17 113/74 95 05/09/18 15:18 05/09/18 15:18 05/09/18 15:18 05/09/18 15:18 05/09/18 15:18 Intake & Output 05/08/18 05/09/18 05/10/18 06:59 06:59 06:59 Intake Total 600 0 Balance 600 0 Weight 82.5 kg Exam: GENERAL: well-nourished and in no acute distress. Alert and oriented x3 HEAD: Atraumatic, normocephalic. EYES: Pupils equal round and reactive to light, extraocular movements intact, sclera anicteric, conjunctiva are normal. ENT: TMs normal, nares patent, oropharynx clear without exudates. Moist mucous membranes. No oral ulcerations or bleeding gums noted NECK: supple without lymphadenopathy. Trachea is central. No cervical or axillary lymphadenopathy noted. Carotids are 2+, JVD WNL LUNGS: Respiration seems nonlabored, no significant accessory muscle action noted. Breath sounds clear to auscultation bilaterally and equal noted. No wheezes rales or rhonchi noted. No significant dullness noted on percussion. CHEST: Palpation of the chest wall shows no significant chest wall tenderness. HEART: [place] [employer]ER, No PSH, 1/6 CHRISTEL aortic area, 1/6 rodriguez systolic murmur mitral area, no rubs, no gallops. ABDOMEN: Soft, no significant tenderness appreciated, normoactive bowel sounds. No guarding, no rebound. No rigidity noted . No masses appreciated. EXTREMITIES: Pedal pulses are 1-2+, no calf tenderness noted. No clubbing or cyanosis. negative pedal edema noted NEUROLOGICAL: Focused neurological exam showed no significant neurologic deficit. Normal speech, no focal weakness appreciated. PSYCH: Normal mood, normal affect. Judgment and insight within normal limits. SKIN: No significant ecchymosis, skin is noted to be warm. MUSCULOSKELETAL EXAM: No significant acute joint swelling noted. Results Laboratory Results: 05/09/18 04:41 Triglycerides 171 H Cholesterol 200.85 H LDL Cholesterol Direct 101 H VLDL Cholesterol 34.2 H HDL Cholesterol 68 05/08/18 05/09/18 18:00 04:41 Troponin I < 0.012 < 0.012 EKG Comments: Shows sinus rhythm, no acute ST-T wave changes are noted Impressions: Chest X-Ray 05/08/18 15:00 IMPRESSION: NO ACUTE RADIOGRAPHIC FINDING IN THE CHEST. Head CT 05/08/18 16:00 IMPRESSION: NORMAL BRAIN CT WITHOUT CONTRAST. EVIDENCE OF ACUTE STROKE: NO. Chest MRI 05/08/18 16:44 IMPRESSION: Targeted exam with requested parameters, as described. Limitation. Assessment & Plan - Diagnosis (1) Chest pain Qualifiers: Chest pain type: unspecified Qualified Code(s): R07.9 - Chest pain, unspecified Is this a current diagnosis for this admission?: Yes (2) Dyslipidemia Is this a current diagnosis for this admission?: Yes (3) Hypertensive urgency Is this a current diagnosis for this admission?: Yes - Notes Notes: Chest pain: Patient has some typical and atypical features of chest pain. Cardiac enzymes so far has been negative. Electrocardiogram did not show any definitive ST segment changes. Multiple differential diagnoses exist in this patient. In descending order of probability this includes underlying coronary artery disease, gastroesophageal reflux, musculoskeletal pain, referred pain from elsewhere, anxiety panic disorder etc.Patient has significant cardiac risk factors, which indicates that there is a intermediate probability of chest discomfort coming from underlying CAD. Feel that it would need to be evaluated further. Discussed evaluation to assess this. In this regard risk benefits of nuclear stress test and other alternative processes were discussed in detail. The patient prefers to undergo nuclear stress test. The small risk of radiation , myocardial infarction, , cardiac arrhythmias, respiratory distress etc. were discussed. Patient understood the risks and gave informed consent. Nuclear stress test was therefore scheduled. For risk evaluation, patient is also being scheduled for a 2-D echocardiogram. Patient questions were answered. Hyperlipidemia: LDL goal is less than 70. Recommend statin therapy at least intermediate or high dose, of high potency status. Periodic lipid panel and liver panel is indicated. Patient to report any significant muscle discomfort or other side effects. Hypertension: Presented with severe hypertension. Blood pressure goal in this patient is 140/90 or less. This was discussed with the patient. Currently blood pressure under reasonable control. Better medication for this patient are BOBBY inhibitor/ARB/beta sunday etc. discussed side effects of uncontrolled hypertension and also severe hypotension. - Time Time Spent: 30 to 50 Minutes - More than 50% of the time spent coordinating care , discussing management plans with involved caregivers. Management plans discussed with involved personnels. Medical decision making was of moderate to high complexity, patient's has multiple comorbidities. Medications reviewed and adjusted accordingly: Yes
--- NOTE | 2018-05-10 19:11 | PDOC PROGRESS REPORT ---
Subjective Progress Note for:: 05/10/18 Subjective:: Patient seems to be doing better. Nuclear stress test results were reviewed with the patient. 2D echo results reviewed with the patient. Patient questions were answered. Pt is denying any chest arm or neck discomfort. Patient denying any PND, orthopnea. Patient denied any sustained palpitations, dizziness, syncope, near syncope. Patient denying any fever chills. Patient denying any other significant discomfort. Patient is maintaining sinus rhythm. Review of systems: Rest review of systems negative. Medications: Medications have been reviewed. Reason For Visit: HYPERTENSIVE EMERGENCY,ATYPICAL CHEST PAIN Physical Exam Vital Signs: Temp Pulse Resp BP Pulse Ox 97.4 F 56 L 18 123/68 98 05/10/18 09:55 05/10/18 09:55 05/10/18 09:55 05/10/18 09:55 05/10/18 09:55 Intake & Output 05/09/18 05/10/18 05/11/18 06:59 06:59 06:59 Intake Total 600 911 Balance 600 911 Weight 82.5 kg 82.6 kg Exam: GENERAL: well-nourished and in no acute distress. Alert and oriented x3 HEAD: Atraumatic, normocephalic. EYES: Pupils equal round and reactive to light, extraocular movements intact, sclera anicteric, conjunctiva are normal. ENT: TMs normal, nares patent, oropharynx clear without exudates. Moist mucous membranes. No oral ulcerations or bleeding gums noted NECK: supple without lymphadenopathy. Trachea is central. No cervical or axillary lymphadenopathy noted. Carotids are 2+, JVD WNL LUNGS: Respiration seems nonlabored, no significant accessory muscle action noted. Breath sounds clear to auscultation bilaterally and equal noted. No wheezes rales or rhonchi noted. No significant dullness noted on percussion. CHEST: Palpation of the chest wall shows no significant chest wall tenderness. 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 ABDOMEN: Soft, no significant tenderness appreciated, normoactive bowel sounds. No guarding, no rebound. No rigidity noted . No masses appreciated. EXTREMITIES: Pedal pulses are 1-2+, no calf tenderness noted. No clubbing or cyanosis. negative pedal edema noted NEUROLOGICAL: Focused neurological exam showed no significant neurologic deficit. Normal speech, no focal weakness appreciated. PSYCH: Normal mood, normal affect. Judgment and insight within normal limits. SKIN: No significant ecchymosis, skin is noted to be warm. MUSCULOSKELETAL EXAM: No significant acute joint swelling noted. Results Laboratory Results: 05/08/18 05/09/18 18:00 04:41 Troponin I < 0.012 < 0.012 EKG Comments: Telemetry shows sinus rhythm, no sustained tachycardia or bradycardia noted. Impressions: Chest X-Ray 05/08/18 15:00 IMPRESSION: NO ACUTE RADIOGRAPHIC FINDING IN THE CHEST. Head CT 05/08/18 16:00 IMPRESSION: NORMAL BRAIN CT WITHOUT CONTRAST. EVIDENCE OF ACUTE STROKE: NO. Chest MRI 05/08/18 16:44 IMPRESSION: Targeted exam with requested parameters, as described. Limitation. Assessment & Plan - Diagnosis (1) Chest pain Qualifiers: Chest pain type: unspecified Qualified Code(s): R07.9 - Chest pain, unspecified Is this a current diagnosis for this admission?: Yes (2) Dyslipidemia Is this a current diagnosis for this admission?: Yes (3) Hypertensive urgency Is this a current diagnosis for this admission?: Yes - Notes Notes: Chest pain: Patient claims chest pain is resolved. This was evaluated with a nuclear stress test. Nuclear stress test was negative for any significant areas of ischemia or any significant areas of scar. The nuclear stress test is felt to be relatively low risk. Patient informed that occasionally single- vessel disease and balanced ischemia could be missed. Patient advised aggressive risk factor modification and medical therapy. Patient informed that further evaluation may become necessary if symptoms worsens or there is a development of new symptoms indicative of angina or angina equivalent symptom. Hypertension: Blood pressure goal in this patient is 140/90 or less. This was discussed with the patient. Currently blood pressure under reasonable control. Better medication for this patient are BOBBY inhibitor/ARB/beta sunday etc. discussed side effects of uncontrolled hypertension and also severe hypotension. Hyperlipidemia: LDL goal is less than 70. Recommend statin therapy at least intermediate or high dose, of high potency status. Periodic lipid panel and liver panel is indicated. Patient to report any significant muscle discomfort or other side effects. Nuclear stress test results were discussed in detail. 2D echocardiogram results were also discussed in detail. Patient questions were answered. - Time Time with patient: Greater than 35 minutes - More than 50% of the time spent coordinating care, discussing management plans with involved caregivers. Management plans discussed with involved personnels. Medical decision making was of moderate to high complexity, patient's has multiple comorbidities. Medications reviewed and adjusted accordingly: Yes
== END 2018-05-10 10:20 | disposition home or self-care (01) ==
LOC: ER 14:25 → EH 17:55 → 3S 19:30
PROVIDERS: ADMIT Internal Medicine; ATTEND Internal Medicine
DX: R07.89 Other chest pain (principal); I16.0 Hypertensive urgency; E78.5 Hyperlipidemia, unspecified; R51 Headache; M19.90 Unspecified osteoarthritis, unspecified site; I45.4 Nonspecific intraventricular block; R06.02 Shortness of breath; R11.0 Nausea; R61 Generalized hyperhidrosis; Z90.49 Acquired absence of other specified parts of digestive tract; Z82.49 Family history of ischemic heart disease and other diseases of the circulatory system; Z79.899 Other long term (current) drug therapy; Z79.82 Long term (current) use of aspirin; Z91.041 Radiographic dye allergy status; Z23 Encounter for immunization
CPT/HCPCS: 93005; 99285; 36415 ×2; 82553; 82550; 85025; 80053; 84484 ×2; 80061; 93306; 93017; 71550; 71045; 78452; 70450; 90686; 93010; G0378 ×4; A9500; J2785; A9270 ×8; J1650 ×2; J3490 ×2; Q9969

== ENCOUNTER → 2018-11-01 | Outpatient (CLI) | payer MEDICARE ==
--- NOTE | 2018-11-01 13:07 | RADIOLOGY REPORT (SQ) ---
EXAM DESCRIPTION: MRI LT LOWER JOINT WITHOUT COMPLETED DATE/TIME: 11/01/2018 11:56 am REASON FOR STUDY: PAIN IN LEFT KNEE M25.562 PAIN IN LEFT KNEE COMPARISON: None. TECHNIQUE: Leftknee images acquired and stored on PACS. Multiplanar images include fat sensitive se quences as T1, water sensitive sequences as FST2 or STIR, cartilage sensitive sequences as FSPD, and gradient echo sequences. LIMITATIONS: Mild motion artifact. FINDINGS: JOINT AND BURSAE: Trace fluid. No significant loose bodies. BONE CORTEX AND MARROW: No alteration of signal to suggest marrow replacement. No worrisome bone lesi ons. No occult fracture. ACL: Intact. No degeneration or ganglion cyst. PCL: Intact. MCL: Intact. No periligamentous edema or fluid. LCL: Intact. No periligamentous edema or fluid. MEDIAL MENISCUS: Slightly heterogeneous signal posterior horn with blunting along the free margin. M inimally extruded appearance. LATERAL MENISCUS: Abnormal signal extending to the upper articular surface in the anterior body with signal extending into the anterior horn. Suspicious for tear. MEDIAL COMPARTMENT: Mild chondral thinning and suggested mild fibrillation. No focal full-thickness defects or reactive bone changes. LATERAL COMPARTMENT: Similar changes to the medial compartment. PATELLA: Normal location. Apical chondromalacia patella suggested. Motion artifact limits. Promine nt underlying subchondral cysts are present. EXTENSOR MECHANISM: Intact. Quadriceps and patella tendons normal. SOFT TISSUES: Adjacent muscles and subcutaneous tissues normal. Normal flow void in popliteal artery and vein. OTHER: No other significant finding. IMPRESSION: 1. Meniscal pathology as above. Suspect medial and lateral tears. 2. Chondromalacia. Includes apical chondromalacia patella. TECHNICAL DOCUMENTATION: JOB ID: [id number] [employer]- All Rights Reserved Reading location - IP/workstation name: [email or web address]
== END ==
LOC: RAD 11:09
PROVIDERS: ATTEND Orthopaedic Surgery
DX: M25.562 Pain in left knee (principal)